=== PATIENT | female | born 1990 | race African-American/Black ===

== ENCOUNTER 2022-09-30 20:00 | Emergency (ER) | payer SELFPAY ==
[~2022-09-30] VITALS: Ht 162.6 cm; Wt 111.3 kg
[2022-09-30 20:15] VITALS: BP 182/97
[2022-09-30] MEDS ORDERED: ACETAMINOPHEN 325MG TABLET PO ONE (21:30)
[2022-09-30] MEDS ORDERED: IBUP-1525 MT (22:13)
[2022-09-30] MEDS ORDERED: TOPUD MT (22:13)
[2022-09-30] MEDS ORDERED: CYCL25PO15 MT (22:13)
== END 2022-09-30 23:48 | disposition home or self-care (01) ==
LOC: ER 20:00
DX: M25.561 Pain in right knee (principal); E11.9 Type 2 diabetes mellitus without complications
CPT/HCPCS: 72110; 73562; 81025; 99284

== ENCOUNTER 2024-08-11 06:45 | Emergency (ER) | payer SELFPAY ==
[~2024-08-11 06:45] MED LIST: CYCL25PO15 MT; IBUP-1525 MT; TOPUD MT
[2024-08-11 07:23] VITALS: PULSE 105; RESP 16; O2SAT 100
== END 2024-08-11 07:33 | disposition left against medical advice (07) ==
LOC: ER 06:45
DX: R07.89 Other chest pain (principal); Z53.21 Procedure and treatment not carried out due to patient leaving prior to being seen by health care provider

== ENCOUNTER 2024-12-17 07:46 | Inpatient (IN) | payer MEDICAID ==
[~2024-12-17] VITALS: Ht 162.6 cm; Wt 112.9 kg
[2024-12-17 08:04] VITALS: O2SAT 100
[2024-12-17 08:40] LABS: BASOPHILS % 0.5 % (0.0-2.0); EOSINOPHILS % 0.0 % (0.0-5.0); HEMATOCRIT. 44.3 % (36.0-48.0); HEMOGLOBIN. 14.6 g/dL (12.0-16.0); LYMPHOCYTES % 14.8 % (20.0-50.0); MEAN PLATELET VOLUME 9.4 fl (7.4-10.4); MONOCYTES % 2.3 % (2.0-8.0); NEUTROPHILS % 82.4 % (40.0-76.0); PLATELET 263 x1000/uL (130-400); RED BLOOD CELL COUNT 5.49 mill/uL (4.2-5.4); RED CELL DISTRIBUTION WIDTH 13.5 % (11.6-14.6)
[2024-12-17] MEDS: ONDANSETRON HCL 4MG/2ML INJ IV ONE (08:45)
[2024-12-17] MEDS: SODIUM CHLORIDE 0.9% 1,000 ML IV ONE (08:45)
[2024-12-17] MEDS: INSULIN REGULAR (HUMULIN R) 1000UNITS/10ML VIAL IV ONE (09:00)
[2024-12-17 09:03] LABS: CREATININE 1.1 mg/dL (0.6-1.0); UREA NITROGEN BLOOD 18 mg/dL (9-23)
[2024-12-17 09:05] LABS: ASPARTATE AMINOTRANSFERASE 12 IU/L (<34); BILIRUBIN DIRECT 0.3 mg/dL (<=3.0)
[2024-12-17 09:06] LABS: BILIRUBIN TOTAL 1.1 mg/dL (0.1-1.0); PROTEIN TOTAL 7.5 g/dL (6.0-8.3)
[2024-12-17 10:30] LABS: CLARITY URINE CLEAR (CLEAR); COLOR URINE YELLOW (YELLOW); GLUCOSE URINE 3+ (NEGATIVE); KETONES URINE 4+ (NEGATIVE); LEUKOCYTE ESTERASE URINE NEGATIVE (NEGATIVE); NITRITE URINE NEGATIVE (NEGATIVE); OCCULT BLOOD URINE 3+ (NEGATIVE); PH URINE 5.5 (4.5-8.0); PROTEIN URINE 3+ (NEGATIVE); SPECIFIC GRAVITY URINE 1.049 (1.005-1.030); UROBILINOGEN URINE 1.0 E.U./dL (0.2-1.0)
[2024-12-17] MEDS ORDERED: INSULIN REGULAR (DRIP) 100 UNITS in SODIUM CHLORIDE 0.9% 99 ML IV SCH (10:30)
[2024-12-17] MEDS ORDERED: MAGNESIUM 2 G PREMIX 50 ML IV PRN (10:30)
[2024-12-17] MEDS: SODIUM CHLORIDE 0.9% 1,000 ML IV SCH (10:30)
[2024-12-17] MEDS ORDERED: DEXTROSE 50% WATER 50ML SYRINGE IV PRN ×2 (10:30→12:15)
[2024-12-17] MEDS ORDERED: KCL 20MEQ/100ML PREMIX 100 ML IV PRN (10:30)
[2024-12-17] MEDS ORDERED: DEXT 5%/0.9% NACL 1,000 ML IV SCH (10:30)
[2024-12-17] MEDS ORDERED: SODIUM PHOSPHATE 15 MMOL in SODIUM CHLORIDE 0.9% 245 ML IV PRN (10:30)
[2024-12-17] MEDS ORDERED: BLOOD SUGAR DIAGNOSTIC STRIP TEST PRN (10:30)
[2024-12-17] MEDS ORDERED: POTASSIUM CHLORIDE 40 MEQ in SODIUM CHLORIDE 0.9% 230 ML IV PRN (10:30)
[2024-12-17 10:54] LABS: RBC URINE TNTC /hpf (0-2); SQUAMOUS EPITHELIAL CELL URINE FEW /lpf (RARE/1+)
[2024-12-17 10:55] LABS: BACTERIA URINE NONE SEEN; WBC URINE NONE SEEN /hpf (0-2)
[2024-12-17] MEDS: HYDRALAZINE 20MG/ML VIAL IV NR (10:59)
[2024-12-17] MEDS: BLOOD SUGAR DIAGNOSTIC STRIP TEST SCH ×2 (11:09→13:00)
[2024-12-17] MEDS: INSULIN REGULAR 100U/100ML PMX 100 ML IV SCH (11:46)
[2024-12-17 11:47] LABS: CREATININE 0.9 mg/dL (0.6-1.0); UREA NITROGEN BLOOD 17 mg/dL (9-23)
[2024-12-17 11:49] LABS: PHOSPHORUS 2.7 mg/dL (2.5-4.9)
[2024-12-17] MEDS ORDERED: ACETAMINOPHEN 325MG TABLET PO PRN ×2 (12:15)
[2024-12-17] MEDS ORDERED: IPRATROPIUM/ALBUTEROL 0.5-3(2.5)MG/3ML NEB HHN PRN ×2 (12:15)
[2024-12-17] MEDS ORDERED: CAPSAICIN 0.075% CREAM 57GM TOP PRN (12:15)
[2024-12-17] MEDS ORDERED: CLONIDINE 0.1MG TABLET PO PRN (12:15)
[2024-12-17] MEDS: AMLODIPINE 10MG TABLET PO SCH (12:30)
[2024-12-17] MEDS: CEFTRIAXONE 1GM/50ML 50 ML IV SCH (12:53)
[2024-12-17] MEDS: INSULIN GLARGINE 100 UNITS/ML SUBCUT NR (12:55)
[2024-12-17] MEDS: POTASSIUM CHLORIDE 20MEQ TABLET SR PO NR (13:15)
[2024-12-17] MEDS: INSULIN LISPRO 100 UNITS/ML SUBCUT SCH (13:20)
[2024-12-17 13:32] LABS: HCG SCREEN NEGATIVE
[2024-12-17 13:34] LABS: TROPONIN I HIGH SENSITIVITY 6 ng/L (3.0-34)
[2024-12-17 14:03] LABS: BG BASE EXCESS 3.8 mmol/L (-2.0-3.0); BG CARBOXYHEMOGLOBIN 0.7 % (0.5-1.5); BG DEOXYHEMOGLOBIN 7.5 % (0.0-5.0); BG FRACTION INSPIRED OXYGEN 21; BG HCO3 ACT 26.8 mmol/L (21.0-28.0); BG METHEMOGLOBIN 0.3 % (0.5-1.5); BG OXYGEN SATURATION 92.4 % (94.0-98.0); BG OXYHEMOGLOBIN 91.5 % (94.0-98.0); BG PCO2 35.5 mmHg (32.0-45.0); BG PH 7.495 (7.350-7.450); BG PO2 65.2 mmHg (83.0-108.0); BG SAMPLE SITE RIGHT RADIAL; BG TOTAL HEMOGLOBIN 15.5 g/dL (12.0-16.0); BG VENT MODE ROOM AIR
[2024-12-17] MEDS: DIPHENHYDRAMINE 50MG/ML VIAL IV NR (14:29)
[2024-12-17] MEDS: LACTATED RINGERS 1,000 ML IV SCH (14:37)
[2024-12-17] MEDS: HYDRALAZINE 20MG/ML VIAL IV PRN (15:33)
[2024-12-17] MEDS: ONDANSETRON HCL 4MG/2ML INJ IV PRN (16:47)
[2024-12-17 17:29] VITALS: BP 155/71; PULSE 109; RESP 20; TEMP 37.0852
[2024-12-17] MEDS: PANTOPRAZOLE SODIUM 40 MG/VIAL IV SCH (18:47)
[2024-12-17 20:00] VITALS: BP 113/75; PULSE 119; RESP 17; TEMP 36.6; TEMP 37.1; O2SAT 99
[2024-12-18] VITALS: BP 153/85; PULSE 83; RESP 16; TEMP 37.1; O2SAT 98
[2024-12-18 04:00] VITALS: BP 141/74; PULSE 72; RESP 18; TEMP 37.1; O2SAT 100
[2024-12-18 07:19] LABS: BASOPHILS % 0.3 % (0.0-2.0); EOSINOPHILS % 0.1 % (0.0-5.0); HEMATOCRIT. 43.1 % (36.0-48.0); HEMOGLOBIN. 13.8 g/dL (12.0-16.0); LYMPHOCYTES % 24.3 % (20.0-50.0); MEAN PLATELET VOLUME 10.3 fl (7.4-10.4); MONOCYTES % 5.8 % (2.0-8.0); NEUTROPHILS % 69.5 % (40.0-76.0); PLATELET 223 x1000/uL (130-400); RED BLOOD CELL COUNT 5.25 mill/uL (4.2-5.4); RED CELL DISTRIBUTION WIDTH 14.0 % (11.6-14.6)
[2024-12-18 07:49] LABS: CREATININE 0.9 mg/dL (0.6-1.0); UREA NITROGEN BLOOD 13 mg/dL (9-23)
[2024-12-18 07:51] LABS: PHOSPHORUS 3.2 mg/dL (2.5-4.9)
[2024-12-18 07:52] LABS: CREATININE 0.9 mg/dL (0.6-1.0)
[2024-12-18 07:53] LABS: LDL CHOLESTEROL 130 mg/dL (5-100); TRIGLYCERIDE 112 mg/dL (0-150); UREA NITROGEN BLOOD 13 mg/dL (9-23)
[2024-12-18 08:00] VITALS: BP 150/94; PULSE 93; RESP 20; TEMP 36.4; O2SAT 97
[2024-12-18] MEDS: LOSARTAN 50 MG TABLET PO SCH (08:55)
[2024-12-18] MEDS ORDERED: ONDA4TAB50 MT (09:48)
[2024-12-18] MEDS ORDERED: LOSA50TA41 PO (09:48)
[2024-12-18] MEDS ORDERED: INSU100I28 SQ (09:48)
[2024-12-18] MEDS ORDERED: AMLO10TA80 PO (09:48)
[2024-12-18] MEDS ORDERED: PROT20 MT (09:48)
[2024-12-18] MEDS ORDERED: INSULIN GLARGINE 100 UNITS/ML SUBCUT SCH (10:00)
[2024-12-18] MEDS: INSULIN GLARGINE 100 UNITS/ML SUBCUT SCH (10:24)
[2024-12-18 12:00] VITALS: BP 182/87; PULSE 74; RESP 18; TEMP 36.4; O2SAT 98
[2024-12-18 14:49] VITALS: BP 181/80; PULSE 63; RESP 19; TEMP 98
== END 2024-12-18 14:45 | disposition home or self-care (01) | DRG 420 ==
LOC: ER 07:46 → 5WST 10:31 → EDBEDREQSVC 12:45 → ENRESERV 14:25
PROVIDERS: ADMIT Hospitalist; ATTEND Hospitalist
DX: E11.10 Type 2 diabetes mellitus with ketoacidosis without coma (principal); N17.9 Acute kidney failure, unspecified; E87.6 Hypokalemia; I16.1 Hypertensive emergency; F17.210 Nicotine dependence, cigarettes, uncomplicated; Z79.84 Long term (current) use of oral hypoglycemic drugs; Z91.148 Patient's other noncompliance with medication regimen for other reason; Z79.899 Other long term (current) drug therapy; R11.2 Nausea with vomiting, unspecified; K29.00 Acute gastritis without bleeding
CPT/HCPCS: 36415; 36600; 71045; 76705; 80048; 80061; 80076; 81003; 82010; 82375; 82805; 82962; 83036; 83605; 83735; 83880; 83930; 84100; 84443; 84484; 84703; 85025; 93005; 99291; J0360; J0696; J1200; J1815; J2405; J2470; J3480; J7030; J7042